=== PATIENT | female | born 1955 | race Caucasian/White ===

== ENCOUNTER 2017-07-26 22:43 | Emergency (ER) | payer MEDICAID ==
[2017-07-26] MEDS ORDERED: KETOROLAC 60 MG/2 ML VIAL IM STA (23:12)
[2017-07-26] MEDS ORDERED: DEXAMETHASONE 10 MG/ML VIAL PO STA (23:12)
[2017-07-26] MEDS ORDERED: CHERRY SYRUP 10 ML UDC PO ONE (23:31)
--- NOTE | 2017-07-26 23:48 | XRAY Report ---
EXAM: LEFT SHOULDER RADIOGRAPHY EXAM DATE: 07/26/2017 11:37 PM. CLINICAL HISTORY: Left shoulder pain. COMPARISON: 01/11/2016. TECHNIQUE: 3 views. FINDINGS: Bones: No fracture seen. No focal area of bone destruction. Joints: No dislocation seen. Joints are relatively well preserved. Soft tissues: Calcific tendinitis in the rotator cuff. IMPRESSION: 1. No acute fracture or dislocation seen. 2. Calcific tendinitis in the rotator cuff. [facility] Referring Provider Line: [phone] SITE ID: [id number]
--- NOTE | 2017-07-26 23:48 | XRAY Preliminary Report ---
Exam: XR SHOULDER 3 VIEW LT IMPRESSION: 1. No acute fracture or dislocation seen. 2. Calcific tendinitis in the rotator cuff. [facility] SITE ID: [id number]
--- NOTE | 2017-07-27 00:30 | ED Physician Documentation ---
PD HPI UPPER EXT INJURY - Stated complaint Stated Complaint: LT ARM PX - Chief complaint Chief Complaint: Ext Problem - History obtained from History obtained from: Patient - History of Present Illness Location: Left, Shoulder Where injury occurred: Home Timing - onset: Chronic Timing - details: Gradual onset, Still present Worsened by: Moving, Palpating Contributing factors: No: Anticoagulated, Prior ortho surgery Similar symptoms before: No diagnosis Recently seen: Not recently seen - Additonal information Additional information: Patient is a 62 year old female presenting to the emergency department for left shoulder pain. patient denies any recent trauma or falls. Patient states that the pain radiates down her left arm and is aching and stabbing. patient saw her doctor today who ordered x-rays but patient came to the emergency department instead to get evaluated. Review of Systems Constitutional: denies: Fever, Chills Eyes: reports: Reviewed and negative Ears: reports: Reviewed and negative Nose: reports: Reviewed and negative Throat: reports: Reviewed and negative Cardiac: denies: Chest pain / pressure, Palpitations Respiratory: denies: Dyspnea, Cough, Wheezing GI: reports: Reviewed and negative : reports: Reviewed and negative Skin: denies: Rash, Lesions, Abrasion (s) Musculoskeletal: reports: Extremity pain, Joint pain Neurologic: denies: Generalized weakness, Focal weakness, Numbness Immunocompromised: denies: Immunocompromised PD PAST MEDICAL HISTORY - Past Medical History Cardiovascular: None Respiratory: Sleep apnea Neuro: None Endocrine/Autoimmune: None GI: None 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 : None HEENT: None Psych: None Musculoskeletal: Osteoarthritis, Osteoporosis Derm: Rosacea - Past Surgical History Past Surgical History: Yes HEENT: Tonsil/Adenoidectomy - Present Medications Home Medications: Ambulatory Orders Medication Instructions Recorded Confirmed Clindamycin HCl [Clindamycin 300MG 300 mg PO QID 7 Days capsule 02/05/16 CAP] Ibuprofen [Motrin] 800 mg PO Q8H PRN #30 tablet 02/05/16 Ciprofloxacin HCl [Cipro] 500 mg PO BID #14 tablet 02/15/16 - Allergies Allergies/Adverse Reactions: Allergies Allergy/AdvReac Type Severity Reaction Status Date / Time amoxicillin trihydrate * Allergy Intermediate gi upset Verified 07/26/17 22:53 [From Amoxil] Penicillins Allergy Unknown Verified 07/26/17 22:53 - Social History Does the pt smoke?: No Smoking Status: Never smoker Does the pt drink ETOH?: No Does the pt have substance abuse?: No - Immunizations Immunizations are current?: No Immunizations: TDAP >10years/unknown PD ED PE NORMAL - General General: Alert and oriented X 3, No acute distress - HEENT HEENT: Atraumatic, PERRL - Neck Neck: Supple, no meningeal sign - Cardiac Cardiac: RRR - Respiratory Respiratory: No respiratory distress - Abdomen Abdomen: Soft, Non distended - Derm Derm: Normal color, Warm and dry, No rash - Neuro Neuro: Alert and oriented X 3, Normal speech PD ED PE EXPANDED - Extremities Extremities: Left shoulder (decreased active rom secondary to pain, full passive rom, no bony deformity), Motor intact, Sensory intact, Vascular intact, Tendon intact Results - Vitals Vitals: Vital Signs - 24 hr 07/26/17 07/27/17 22:52 00:52 Temperature 37.1 C Heart Rate 83 76 Respiratory 18 16 Rate Blood Pressure 157/82 H 147/81 H O2 Saturation 98 98 Oxygen O2 Source Room air - Rads (name of study) left shoulder Radiology: Final report received (calcified tendonitis) PD MEDICAL DECISION MAKING - ED course Complexity details: reviewed old records, reviewed results, re-evaluated patient , considered differential, d/w patient ED course: Patient was seen and examined at bedside. patient was treated with toradol, decadron and sent for imaging. when patient returned the results were reviewed and were consistent with calcified tendonitis. Patient was shown her films and the findings were reviewed with her. Patient required no further inpatient work up and was stable for discharge with outpatient follow up. Departure - Departure Disposition: 01 Home, Self Care Clinical Impression: Tendonitis Condition: Good Instructions: ED Tendinitis Calcific Follow-Up: FIORELLA GARCIA [Primary Care Provider] - Within 3 Days Comments: Your diagnostics today showed tendonitis of your left shoulder. Your symptoms are also consistent with radiculopathy. You can take motrin or tylenol as needed for pain. you should follow up with your doctor as your next test would be an mri if necessary. Discharge Date/Time: 07/27/17 00:53
[2017-07-27 00:54] VITALS: BP 147/81
== END 2017-07-27 00:53 | disposition home or self-care (01) ==
LOC: ED 22:43
DX: M75.92 Shoulder lesion, unspecified, left shoulder (principal)
CPT/HCPCS: 73030; 96372; 99283; A9270

== ENCOUNTER 2017-08-02 15:58 | Outpatient (CLI) | payer MEDICAID ==
--- NOTE | 2017-08-03 09:00 | XRAY Report ---
COMPLETE CERVICAL SPINE: 08/02/2017 CLINICAL INDICATION: Disk disease, neck pain. FINDINGS: AP, lateral, odontoid, bilateral oblique views of the cervical spine demonstrate moderate degenerative disk and facet disease, with bilateral osseous neural foraminal narrowing from C4 to C6. There is no evidence of fracture or subluxation. The prevertebral soft tissues are unremarkable. IMPRESSION: MODERATE DEGENERATIVE DISK AND FACET DISEASE, WITH BILATERAL OSSEOUS NEURAL FORAMINAL NARROWING. TD: 08/03/2017 09:00
== END 2017-08-02 15:59 | disposition home or self-care (01) ==
LOC: DI 15:58
PROVIDERS: ATTEND Family Medicine
DX: M50.10 Cervical disc disorder with radiculopathy, unspecified cervical region (principal)
CPT/HCPCS: 72050

== ENCOUNTER 2017-10-18 16:15 | Outpatient (CLI) | payer MEDICAID ==
--- NOTE | 2017-10-19 09:33 | XRAY Report ---
TWO VIEW CHEST: 10/18/2017 CLINICAL INDICATION: Bronchitis. COMPARISON: 02/15/2016. FINDINGS: Frontal and lateral views of the chest demonstrate a normal cardiac silhouette. The lungs are clear. No effusion or pneumothorax is present. IMPRESSION: NORMAL CHEST. TD: 10/19/2017 09:18
== END 2017-10-18 16:16 | disposition home or self-care (01) ==
LOC: DI 16:15
PROVIDERS: ATTEND Internal Medicine
DX: J40 Bronchitis, not specified as acute or chronic (principal)
CPT/HCPCS: 71046

== ENCOUNTER 2020-03-12 11:11 | Outpatient (CLI) | payer MEDICAID | END 2020-03-12 11:12 | disposition home or self-care (01) | LOC: LAB 11:11 | PROVIDERS: ATTEND Orthopaedic Surgery | DX: Z20.828 Contact with and (suspected) exposure to other viral communicable diseases (principal) ==

== ENCOUNTER 2020-04-01 14:52 | Outpatient (CLI) | payer MEDICARE, MEDICAID ==
--- NOTE | 2020-04-01 16:05 | XRAY Report ---
PROCEDURE: Lumbar Spine Complete INDICATIONS: DORSOPATHY DORSALGIA TECHNIQUE: 4 views of the lumbar spine were acquired. COMPARISON: None. FINDINGS: Bones: 5 [id number] vertebrae are present. There is trace L1-L2, L2-L3 and L3-L4 retrolisthesi s. There is trace L4-L5 anterolisthesis. No vertebral body compression fractures. No suspicious bony lesions. Moderate L5-S1 degenerative disease. Mild L1-L2, L2-L3, L3-L4 and L4-L5 degenerative disc d isease. Moderate L4-L5 and L5-S1 facet arthropathy. Soft tissues: Overlying bowel gas pattern is normal. No suspicious soft tissue calcifications. IMPRESSION: 1. Multilevel degenerative disease. 2. Multilevel facet arthropathy. 3. No fracture. No acute osseous lesion. If there is continued clinical concern for pathology, then M RI should be considered for further evaluation. Reviewed by: Rhonda Kearns MD, PhD on 04/01/2020 4:04 PM PST Approved by: Rhonda Kearns MD, PhD on 04/01/2020 4:04 PM PST Station ID: [id number]
== END 2020-04-01 14:53 | disposition home or self-care (01) ==
LOC: DI 14:52
PROVIDERS: ATTEND Family Medicine
DX: M51.36 Other intervertebral disc degeneration, lumbar region (principal)
CPT/HCPCS: 72110

== ENCOUNTER 2020-04-28 17:30 | Outpatient (CLI) | payer MEDICAID | END 2020-04-28 17:31 | disposition home or self-care (01) | LOC: COV 17:30 | PROVIDERS: ATTEND Family Medicine | DX: R50.9 Fever, unspecified (principal); R05 Cough; R06.02 Shortness of breath; M79.10 Myalgia, unspecified site; R53.83 Other fatigue; J02.9 Acute pharyngitis, unspecified; R43.8 Other disturbances of smell and taste; R09.81 Nasal congestion; Z20.828 Contact with and (suspected) exposure to other viral communicable diseases ==

== ENCOUNTER 2020-07-28 15:26 | Outpatient (CLI) | payer MEDICARE, MEDICAID ==
--- NOTE | 2020-07-28 16:22 | XRAY Report ---
PROCEDURE: Chest 2 View X-Ray INDICATIONS: BRONCHITIS TECHNIQUE: 2 view(s) of the chest. COMPARISON: 08/18/2017 FINDINGS: Surgical changes and devices: None. Lungs and pleura: No pleural effusions or pneumothorax. Lungs are clear. Mediastinum: Mediastinal contours are normal. Heart size is normal. Bones and chest wall: No suspicious bony abnormalities. Soft tissues appear unremarkable. IMPRESSION: Stable examination of the chest without acute cardiopulmonary abnormalities or focal air space disease. Reviewed by: Teddy More MD on 07/28/2020 4:21 PM PST Approved by: Teddy More MD on 07/28/2020 4:21 PM PST Station ID: [id number]
== END 2020-07-28 15:27 | disposition home or self-care (01) ==
LOC: DI.N 15:26
PROVIDERS: ATTEND Family Medicine
DX: J40 Bronchitis, not specified as acute or chronic (principal)

== ENCOUNTER 2020-10-18 20:54 | Emergency (ER) | payer MEDICARE, MEDICAID ==
[2020-10-18 21:08] VITALS: BP 179/78
[2020-10-18 21:39] LABS: BASOPHILS % (AUTO) 0.4 %; EOSINOPHILS # (AUTO) 0.1 10^3/uL (0.0-0.7); EOSINOPHILS % (AUTO) 1.7 %; HCT - HEMATOCRIT 42.2 % (37.0-47.0); HGB - HEMOGLOBIN 14.7 g/dL (12.0-16.0); LYMPHOCYTES # (AUTO) 2.1 10^3/uL (1.5-3.5); LYMPHOCYTES % (AUTO) 28.9 %; MEAN CORPUSCULAR HEMOGLOBIN 30.2 pg (27.0-31.0); MEAN CORPUSCULAR HGB CONC 34.8 g/dL (32.0-36.0); MEAN CORPUSCULAR VOLUME 86.7 fL (81.0-99.0); MEAN PLATELET VOLUME 9.1 fL (7.9-10.8); MONOCYTES # (AUTO) 0.4 10^3/uL (0.0-1.0); MONOCYTES % (AUTO) 5.4 %; NEUTROPHILS # (AUTO) 4.5 10^3/uL (1.5-6.6); NEUTROPHILS % (AUTO) 63.5 %; PLT - PLATELET COUNT 237 10^3/uL (130-450); RED BLOOD COUNT 4.87 10^6/uL (4.20-5.40); RED CELL DISTRIBUTION WIDTH 12.2 % (12.0-15.0); WHITE BLOOD COUNT 7.1 x10^3/uL (4.8-10.8)
[2020-10-18 21:42] LABS: CALCIUM 9.1 mg/dL (8.5-10.3); CREATININE 0.7 mg/dL (0.4-1.0); POTASSIUM 3.6 mmol/L (3.5-5.0)
--- NOTE | 2020-10-18 21:45 | ED Physician Documentation ---
History of Present Illness - Stated complaint Stated Complaint: VACCINE REACTION - Chief complaint Chief Complaint: General - History obtained from History obtained from: Patient - Additonal information Additional information: Had Darinel & Darinel Covid vaccine August 24. Since then is worried that she has developed petechia and has some joint pains and arthralgias as well as pain in the right medial thigh. 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 : None HEENT: None Psych: None Musculoskeletal: Osteoarthritis, Osteoporosis Derm: Rosacea - Past Surgical History Past Surgical History: Yes HEENT: Tonsil/Adenoidectomy - Present Medications Home Medications: Ambulatory Orders Medication Instructions Recorded Confirmed Clindamycin HCl [Clindamycin 300MG 300 mg PO QID 7 Days capsule 02/05/16 CAP] Ibuprofen [Motrin] 800 mg PO Q8H PRN #30 tablet 02/05/16 Ciprofloxacin HCl [Cipro] 500 mg PO BID #14 tablet 02/15/16 - Allergies Allergies/Adverse Reactions: Allergies Allergy/AdvReac Type Severity Reaction Status Date / Time amoxicillin trihydrate * Allergy Intermediate gi upset Verified 10/18/20 21:02 [From Amoxil] Penicillins Allergy Unknown Verified 10/18/20 21:02 - Social History Does the pt smoke?: No Smoking Status: Never smoker Does the pt drink ETOH?: No Does the pt have substance abuse?: No - Immunizations Immunizations are current?: No Immunizations: TDAP >10years/unknown PD ED PE NORMAL - Vitals Vital signs reviewed: Yes - General General: Alert and oriented X 3, No acute distress - HEENT HEENT: PERRL, EOMI - Neck Neck: Supple, no meningeal sign, No bony TTP - Derm Derm: Other (She points to several areas on her arms and trunk with freckles. There are no petechia is noted. She is nickel sized bruise on the medial right thigh. No tenderness. Gait is normal.) - Neuro Neuro: Alert and oriented X 3, Normal speech Results - Vitals Vitals: Vital Signs - 24 hr 10/18/20 21:02 Temperature 36.8 C Heart Rate 85 Respiratory 16 Rate Blood Pressure 179/78 H O2 Saturation 100 Oxygen O2 Source Room air - Labs Labs: Laboratory Tests 10/18/20 10/18/20 10/18/20 21:23 21:23 21:23 WBC 7.1 RBC 4.87 Hgb 14.7 Hct 42.2 MCV 86.7 MCH 30.2 MCHC 34.8 RDW 12.2 Plt Count 237 MPV 9.1 Neut # (Auto) 4.5 Lymph # (Auto) 2.1 [place] # (Auto) 0.4 Eos # (Auto) 0.1 Baso # (Auto) 0.0 Absolute Nucleated RBC 0.00 Nucleated RBC % 0.0 PT 13.0 H INR 1.2 Fibrinogen 395 Sodium 136 Potassium 3.6 Chloride 100 L Carbon Dioxide 26 Anion Gap 10.0 BUN 12 Creatinine 0.7 Estimated GFR (MDRD) 84 L Glucose 105 H Calcium 9.1 PD MEDICAL DECISION MAKING - ED course ED course: 65-year-old woman presents with concern for vaccine side effects related to the Darinel [employer] Darinel vaccine. She notes what she thinks her petechia, but has no petechia and her platelet count is normal. Departure - Departure Disposition: 01 Home, Self Care Clinical Impression: Myalgia Condition: Good Record reviewed to determine appropriate education?: Yes Instructions: ED Muscle Aching Comments: Given the time course and normal labs, the your current symptoms are not related to the Darinel [employer] Darinel vaccine. Follow-up with your physician, return for new or worsening symptoms. Please CC Chart to Dr Jeremias Cabral Discharge Date/Time: 10/18/20 22:03
[2020-10-18 22:06] LABS: INR 1.2 (0.8-1.2)
== END 2020-10-18 22:03 | disposition home or self-care (01) ==
LOC: ED 20:54
DX: M79.10 Myalgia, unspecified site (principal); S70.11XA Contusion of right thigh, initial encounter; X58.XXXA Exposure to other specified factors, initial encounter
CPT/HCPCS: 36415; 80048; 85025; 85384; 85610; 85730; 99282; 99283

== ENCOUNTER 2021-01-14 14:55 | Outpatient (CLI) | payer MEDICARE, MEDICAID ==
--- NOTE | 2021-01-15 09:04 | XRAY Report ---
PROCEDURE: Chest 2 View X-Ray INDICATIONS: BRONCHITIS TECHNIQUE: 2 view(s) of the chest. COMPARISON: 07/28/2020. FINDINGS: Surgical changes and devices: None. Lungs and pleura: No pleural effusions or pneumothorax. Mildly increased bronchovascular markings in bilateral hilar region are seen with mild bronchial wall thickening. No focal infiltrate. Mediastinum: Mediastinal contours are normal. Heart size is normal. Bones and chest wall: No suspicious bony abnormalities. Soft tissues appear unremarkable. IMPRESSION: Finding is consistent with reactive airway disease such as bronchitis or asthma. No foca l infiltrate, pleural effusion or pneumothorax. Reviewed by: Devante Gallo MD on 01/15/2021 9:03 AM PDT Approved by: Devante Gallo MD on 01/15/2021 9:03 AM PDT Station ID: [id number]
== END 2021-01-14 14:56 | disposition home or self-care (01) ==
LOC: DI 14:55
PROVIDERS: ATTEND Family Medicine
DX: J40 Bronchitis, not specified as acute or chronic (principal)

== ENCOUNTER 2021-02-27 21:34 | Emergency (ER) | payer MEDICARE, MEDICAID ==
[2021-02-27 21:40] VITALS: BP 168/85
--- NOTE | 2021-02-27 22:01 | ED Physician Documentation ---
History of Present Illness - Stated complaint Stated Complaint: R EAR PX - Chief complaint Chief Complaint: Heent - Additonal information Additional information: 65-year-old female presents emergency department for evaluation of a cracking or clicking/popping noise that she has felt intermittently in her right ear since yesterday. No fevers no ear drainage no ear pain. However she also reports that for a number of months she has felt a popping and cracking in her nose right sinuses at night. She states that she can stick a Q-tip very deeply into her nose further than she would expect otherwise. 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 HEENT: None Psych: None Musculoskeletal: Osteoarthritis, Osteoporosis Derm: Rosacea - Past Surgical History Past Surgical History: Yes HEENT: Tonsil/Adenoidectomy - Present Medications Home Medications: Ambulatory Orders Medication Instructions Recorded Confirmed No Known Home Medications 02/27/21 02/27/21 - Allergies Allergies/Adverse Reactions: Allergies Allergy/AdvReac Type Severity Reaction Status Date / Time amoxicillin trihydrate * Allergy Intermediate gi upset Verified 02/27/21 21:40 [From Amoxil] Penicillins Allergy Unknown Verified 02/27/21 21:40 - Social History Does the pt smoke?: No Smoking Status: Never smoker Does the pt drink ETOH?: No Does the pt have substance abuse?: No - Immunizations Immunizations are current?: No Immunizations: TDAP >10years/unknown PD ED PE EXPANDED - General General: Alert, No acute distress - HEENT HEENT: Moist mucous membranes, Pharynx normal, Other (Exam of the ears is negative with the exception of a small amount of cerumen in the right ear canal. Patient did not tolerate manual removal complaining of pain.). No: R TM red, R TM dull, R TM bulging, R TM retracted, R TM loss of landmarks, L TM red, L TM dull, L TM bulging, Right frontal sinus TTP, Left frontal sinus TTP, Right maxillary sinus TTP, Left maxillary sinus TTP, Nasal congestion (Limited exam of the nares with nasal speculum does not reveal deviated septum erythema or drainage or crackling.), Pharyngeal erythema, Swollen tonsils, Tonsillar exudate Results - Vitals Vitals: Vital Signs - 24 hr 02/27/21 21:36 Temperature 36.9 C Heart Rate 71 Respiratory 16 Rate Blood Pressure 168/85 H O2 Saturation 97 Oxygen O2 Source Room air PD MEDICAL DECISION MAKING - ED course Complexity details: reviewed results, d/w patient ED course: 65-year-old female presents emergency department with acute cracking/popping sensation in the right ear. No finding of effusion on inner ear. Your canal itself is unremarkable with exception of moderate amount of impacted cerumen. I did attempt to manually remove this at the bedside but patient did not tolerate it well. She also reports a cracking and popping sensation in her right nares but again no adventitious findings were seen. At this time the cause of her symptoms is not clear. I have encouraged her to use an Flonase or steroid nasal spray. I also encouraged use of Debrox for cerumen disimpaction. Recommended close follow-up with PCP. May benefit from referral to an ear nose throat doctor. Departure - Departure Disposition: 01 Home, Self Care Clinical Impression: Excessive cerumen in right ear canal Condition: Stable Record reviewed to determine appropriate education?: Yes Comments: Brooke the exam of both ears does not reveal any fluid, or effusions. The ear canals do not show any infection or inflammation. The only finding was a moderate amount of earwax in the right ear canal. You should buy a product at the pharmacy called Debrox. This is an ointment that is placed in the ear that can help Dissolve the earwax. You also reported a crackling and popping sensation in your right nares. When I view your nasal passages at the bedside they do not appear to show signs of infection abnormal tracts or holes. It is important you discuss this ED visit with your primary care doctor. You may benefit from referral to an ear nose throat doctor who can further help determine the cause of the crackling popping sensations that you are having. I do recommend that you continue to do a daily steroid nasal spray. If you develop facial swelling or have fevers then please return immediately to the ER for second evaluation.
== END 2021-02-27 22:05 | disposition home or self-care (01) ==
LOC: ED 21:34
DX: H61.21 Impacted cerumen, right ear (principal); R09.81 Nasal congestion
CPT/HCPCS: 69210; 99281; 99283

== ENCOUNTER 2021-05-06 02:26 | Emergency (ER) | payer MEDICARE, MEDICAID ==
--- NOTE | 2021-05-06 03:11 | ED Physician Documentation ---
PD HPI OPHTHO - Stated complaint Stated Complaint: L EYE INJURY - Chief complaint Chief Complaint: Heent - History obtained from History obtained from: Patient - Additional information Additional information: 66yF p/w L eye irritation after poking herself in the eye this morning with long fingernails. constant, sudden onset, a/w subconjunctival hemorrhage but no vision changes or discharge. Review of Systems Eyes: reports: Irritation. 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 HEENT: None Psych: None Musculoskeletal: Osteoarthritis, Osteoporosis Derm: Rosacea - Past Surgical History Past Surgical History: Yes HEENT: Tonsil/Adenoidectomy - Present Medications Home Medications: Ambulatory Orders Medication Instructions Recorded Confirmed Mineral Oil/Petrolatum,White 1 appful LEFTEYE QPM 10 Days #1 05/06/21 [Lubricant Pm Eye Ointment] bottle Ofloxacin 0.3% Ophth Drops 2 drops OPTH Q4H #5 ml 05/06/21 [Ocuflox 0.3% Ophth Drops] - Allergies Allergies/Adverse Reactions: Allergies Allergy/AdvReac Type Severity Reaction Status Date / Time amoxicillin trihydrate * Allergy Intermediate gi upset Verified 05/06/21 02:34 [From Amoxil] Penicillins Allergy Unknown Verified 05/06/21 02:34 - Social History Does the pt smoke?: No Smoking Status: Never smoker Does the pt drink ETOH?: No Does the pt have substance abuse?: No - Immunizations Immunizations are current?: No Immunizations: TDAP >10years/unknown PD ED PE NORMAL - Vitals Vital signs reviewed: Yes - General General: Alert and oriented X 3, No acute distress, Well developed/nourished - HEENT HEENT: Atraumatic, PERRL, EOMI, Other (L 2mm subconjunctival hemorrhage. fluorescein exam with small corneal abrasion at 4 oclock position) Results - Vitals Vitals: Vital Signs - 24 hr 05/06/21 02:30 Temperature 36.8 C Heart Rate 78 Respiratory 16 Rate Blood Pressure 129/99 H O2 Saturation 100 Oxygen O2 Source Room air PD MEDICAL DECISION MAKING - ED course ED course: 66yF p/w corneal abrasion. ointment and antibiotic drops prescribed and return precautions given. plan to f/u with pmd. Departure - Departure Disposition: 01 Home, Self Care Clinical Impression: Corneal abrasion, Subconjunctival hemorrhage Condition: Good Instructions: Corneal Injury Prescriptions: Mineral Oil/Petrolatum,White [Lubricant Pm Eye Ointment] 1 appful LEFTEYE QPM 10 Days #1 bottle Ofloxacin 0.3% Ophth Drops [Ocuflox 0.3% Ophth Drops] 2 drops OPTH Q4H #5 ml Comments: You were seen in the emergency department for corneal abrasion (scratch on the eye). Please use the antibiotic eye drops and ointment as prescribed and follow up with your primary doctor as needed. Return to the ED if you have new or worsening symptoms or other concerns.
[2021-05-06 03:20] VITALS: BP 158/74
== END 2021-05-06 03:20 | disposition home or self-care (01) ==
LOC: ED 02:26
DX: S05.02XA Injury of conjunctiva and corneal abrasion without foreign body, left eye, initial encounter (principal); H11.32 Conjunctival hemorrhage, left eye; W22.8XXA Striking against or struck by other objects, initial encounter; Y93.89 Activity, other specified; Y92.009 Unspecified place in unspecified non-institutional (private) residence as the place of occurrence of the external cause
CPT/HCPCS: 99281; 99282

== ENCOUNTER 2023-05-25 17:21 | Outpatient (CLI) | payer MEDICARE, MEDICAID | END 2023-05-25 17:22 | disposition EMS.NT | LOC: EMS 17:21 | DX: F03.90 Unspecified dementia, unspecified severity, without behavioral disturbance, psychotic disturbance, mood disturbance, and anxiety (principal) ==

== ENCOUNTER 2023-10-07 13:51 | Outpatient (CLI) | payer MEDICARE, MEDICAID | END 2023-10-07 23:59 | disposition critical access hospital (66) | LOC: EMS 13:51 | DX: Z04.6 Encounter for general psychiatric examination, requested by authority (principal); R41.0 Disorientation, unspecified; Z59.89 Other problems related to housing and economic circumstances; Z60.2 Problems related to living alone | CPT/HCPCS: A0425; A0429 ==

== ENCOUNTER 2023-10-07 15:42 | Emergency (ER) | payer MEDICARE, MEDICAID ==
--- NOTE | 2023-10-07 15:58 | ED Physician Documentation ---
PD HPI MHE - Stated complaint Stated Complaint: DEMENTIA/SANDIE - Chief complaint Chief Complaint: General - History obtained from History obtained from: Patient, EMS - History of Present Illness Primary symptom: Psychosis Contributing factors: Other (history of early onset dementia) Similar symptoms before: Diagnosis (dementia) Recently seen: Not recently seen - Additional information Additional information: Brooke Pepe is a 68-year-old female who now has a year and a half history of d ementia that started after COVID. She has had evaluation with CT scan she is still awaiting evaluation by neurology. She is confused enough that she struck up a conversation with the neighbors while she was on her own porch they felt that she was confused enough that she was unable to care for herself and called 911. The patient is cared for at her home by her daughter Charu, her son-in-law Brayan and her best friend. I have talked to both the patient's daughters Eilna who lives in [place] and cares for her mother and Ulysses who lives in [place]. They assured me that the mother is getting adequate care at home and is usually supervised with very infrequent lapses and supervision. Review of Systems Constitutional: denies: Fever Eyes: denies: Decreased vision Ears: denies: Ear pain Nose: denies: Rhinorrhea / runny nose, Congestion Throat: denies: Sore throat Cardiac: denies: Chest pain / pressure Respiratory: denies: Dyspnea, Cough GI: denies: Abdominal Pain, Nausea, Vomiting, Constipation, Diarrhea : denies: Dysuria, Frequency Skin: denies: Rash Musculoskeletal: denies: Neck pain, Back pain, Extremity pain Neurologic: reports: Confused. denies: Generalized weakness, Focal weakness, Numbness PD PAST MEDICAL HISTORY - Past Medical History Cardiovascular: None Respiratory: Sleep apnea Endocrine/Autoimmune: None GI: None APPLICATIONS COORDINATOR: None : None HEENT: None Psych: None Musculoskeletal: Osteoarthritis, Osteoporosis Derm: Rosacea - Past Surgical History Past Surgical History: Yes HEENT: Tonsil/Adenoidectomy - Present Medications Home Medications: Ambulatory Orders Medication Instructions Recorded Confirmed Mineral Oil/Petrolatum,White 1 appful LEFTEYE QPM 10 Days #1 05/06/21 [Lubricant Pm Eye Ointment] bottle Ofloxacin 0.3% Ophth Drops 2 drops OPTH Q4H #5 ml 05/06/21 [Ocuflox 0.3% Ophth Drops] - Allergies Allergies/Adverse Reactions: Allergies Allergy/AdvReac Type Severity Reaction Status Date / Time amoxicillin trihydrate * Allergy Intermediate gi upset Verified 10/07/23 15:43 [From Amoxil] Penicillins Allergy Unknown Verified 10/07/23 15:43 - Social History Does the pt smoke?: No Smoking Status: Never smoker Does the pt drink ETOH?: No Does the pt have substance abuse?: No - Immunizations Immunizations are current?: No Immunizations: TDAP >10years/unknown - POLST Patient has POLST: No PD ED PE NORMAL - Vitals Vital signs reviewed: Yes (hypertensive mild ) - General General: No acute distress, Well developed/nourished, Other (The patient appears confused just with eye contact. ) - HEENT HEENT: Atraumatic, PERRL, EOMI - Neck Neck: Supple, no meningeal sign, No bony TTP - Cardiac Cardiac: RRR, No murmur - Respiratory Respiratory: No respiratory distress, Clear bilaterally - Abdomen Abdomen: Soft, Non tender - Back Back: No CVA TTP, No spinal TTP - Derm Derm: Normal color, Warm and dry, No rash - Extremities Extremities: No deformity, No edema - Neuro Neuro: Alert and oriented X 3, intermediate project manager 2-12 intact, No motor deficit, No sensory deficit, Normal speech Eye Opening: Spontaneous Motor: Obeys Commands Verbal: Oriented GCS Score: 15 - Psych Psych: Normal mood, Normal affect Results - Vitals Vitals: Vital Signs - 24 hr 10/07/23 10/07/23 15:43 17:30 Temperature 36.6 C Heart Rate 98 72 Respiratory 18 17 Rate Blood Pressure 127/97 H 193/99 H O2 Saturation 98 97 Oxygen O2 Source Room air PD Medical Decision Making - ED course Complexity details: considered differential, d/w patient, d/w family ED course: This 68-year-old female with a history of early onset dementia is cared for at her home by a daughter and her as well as one of her husbands friends and a best friend of the patient herself. There is usually someone present at the home all of the time. Occasionally the patient will be left alone and today she went out onto her porch and struck up a conversation with the neighbor who was someone unfamiliar with her. The neighbor became concerned with her level of confusion and called 911. Patient is brought to the hospital now for evaluation. She appears in her usual state of health and I have been able to confirm with both of the patient's daughters the patient herself and the patient's son-in-law that she is getting adequate care. She is discharged back to home in the care of her family. Departure - Departure Disposition: Home, Self Care Clinical Impression: Dementia Qualifiers: Alzheimer's disease onset: early onset Dementia severity: moderate Dementia behavioral or psychological symptom: without behavioral, psychotic, or mood disturbance or anxiety Condition: Stable Instructions: ED Confusion, ED Dementia Caregiver Support Follow-Up: Jeremias Cabral [Physician No Access] - Comments: Brooke, today it looks like the neighbors you are unfamiliar with were uninformed about your condition. We have been reassured that you are receiving adequate care at home. A follow-up with your primary care doctor is indicated. Forms: PCP List Discharge Date/Time: 10/07/23 17:33
[2023-10-07 17:39] VITALS: BP 193/99; O2SAT 97
== END 2023-10-07 17:33 | disposition home or self-care (01) ==
LOC: EDUNIT# → ED 15:42
DX: G30.0 Alzheimer's disease with early onset (principal); F02.B0 Dementia in other diseases classified elsewhere, moderate, without behavioral disturbance, psychotic disturbance, mood disturbance, and anxiety
CPT/HCPCS: 80053; 82077; 83690; 85025; 99283